=== PATIENT | female | born 1970 ===

== ENCOUNTER 2020-09-08 12:33 | Emergency (ER) | payer BC | END 2020-09-08 13:48 | disposition home or self-care (01) | LOC: NAV ERS 12:33 | DX: U07.1 COVID-19 (principal); E11.9 Type 2 diabetes mellitus without complications; I10 Essential (primary) hypertension; Z79.84 Long term (current) use of oral hypoglycemic drugs; Z79.899 Other long term (current) drug therapy | CPT/HCPCS: 99283 ==